=== PATIENT | male | born 1965 | race Caucasian/White ===

== ENCOUNTER 2019-04-18 00:13 | Inpatient (IN) | payer OTHER ==
[~2019-04-18] VITALS: Ht 185.4 cm; Wt 93.9 kg
[2019-04-19 00:26] VITALS: BP 157/91
--- NOTE | 2019-04-19 00:26 | NUR ---
MS RN OPENING NOTES: RECEIVED PT ON ROOM AIR WITH 2 FAMILY MEMBERS AT BEDSIDE. PT IS A DIRECT ADMIT FROM [facility]. NO SOB NOTED. NO S/S OF DISTRESS. PT HAS IV ON R AC #20G AND IS PATENT AND INTACT. CURRENTLY H/L. NO N/V NOTED. BED KEPT IN LOW, LOCKED POSITION, AND SIDE RAILS X 2UP. WILL CONTINUE TO MONITOR PT.
[2019-04-19] MEDS ORDERED: LINE600T2 PO (00:56)
[2019-04-19] MEDS ORDERED: OMEP20TA20 PO (00:56)
[2019-04-19] MEDS ORDERED: GABA-534 PO (00:56)
[2019-04-19] MEDS ORDERED: INSU100I26 SQ (00:56)
[2019-04-19] MEDS ORDERED: ATOR20TA PO (00:56)
[2019-04-19] MEDS ORDERED: DULA0.75 SQ (00:56)
[2019-04-19] MEDS ORDERED: METF-442 PO (00:56)
[2019-04-19] MEDS ORDERED: OMEP40CA37 PO (00:56)
--- NOTE | 2019-04-19 01:19 | NUR ---
MS RN NOTES: SPOKE WITH DR. KNUTSON. INFORMED HIM THAT PT IS HERE AND AWAITING FOR ADMITTING ORDERS. OK TO ORDER PODIATRY CONSULT PT HAS R FOOT CHARCOT AND JUST HAD SX/DEBRIDEMENT LAST MONTH IN [facility].
[2019-04-19] MEDS ORDERED: MAG HYDROX/AL HYDROX/SIMETH 30 ML UDC PO PRN (02:00)
[2019-04-19] MEDS ORDERED: ACETAMINOPHEN 325 MG TABLET PO PRN (02:00)
[2019-04-19] MEDS ORDERED: MAGNESIUM HYDROXIDE 30 ML UDC PO PRN (02:00)
[2019-04-19] MEDS ORDERED: HYDROCODONE/APAP 5/325MG 1 EACH TABLET PO PRN (02:00)
[2019-04-19] MEDS ORDERED: Z GUARD REMEDY 2 OZ OINT TP PRN (02:00)
[2019-04-19] MEDS ORDERED: ZOLPIDEM TARTRATE 5 MG TABLET PO PRN (02:00)
--- NOTE | 2019-04-19 02:00 | NUR ---
RN NOTES: MRSA OF BOTH NARES COLLECTED AND PLACED IN REFRIGERATOR.
[2019-04-19] MEDS: IV 1/2NS 1000 ML 1,000 ML IV PRN ×2 (02:09→18:23)
--- NOTE | 2019-04-19 03:10 | NUR ---
MS RN NOTES: SPOKE WITH DR. KNUTSON. INFORMED HIM THAT PT IS DIABETIC. OK TO GET ACCUCHECKS ACHS WITH MODERATE SLIDING SCALE. ALSO, INFORMED HIM THAT PT MENTIONED THAT HE IS NO LONGER TAKING THE ZYVOX SO NO NEED TO CONTINUE ZYVOX. WILL D/C.
[2019-04-19] MEDS ORDERED: DEXTROSE 50%-WATER 50 ML DISP.SYRIN IV PRN (03:30)
[2019-04-19] MEDS: ONDANSETRON HCL/PF 4 MG/2 ML VIAL IVP PRN (05:11)
--- NOTE | 2019-04-19 05:15 | NUR ---
MS RN NOTES: PT SAID UPON AWAKENING, HE FEELS A LITTLE NAUSEOUS. PT ALSO COMPLAINING OF HEADACHE. PT WAS ADMINISTERED ZOFRAN 4MG IV AND ACETAMINOPHEN 650MG PO. WILL CONTINUE TO MONITOR. Addendum: 04/19/19 at 0525 by MARIETTA TURNER RN ALSO PT CONFIRMED THAT HE IS NOT ALLERGIC TO TYLENOL BEFORE ADMINISTERING MED.
--- NOTE | 2019-04-19 06:14 | NUR ---
MS RN NOTES: BLOOD SUGAR THIS AM WAS 100. NO INSULIN WAS ADMINISTERED. OFFERED PT SNACK BUT PT VERBALIZED HE CAN WAIT UNTIL BREAKFAST. PT GIVEN ORANGE JUICE INSTEAD. WILL CONTINUE TO MONITOR.
[2019-04-19] MEDS: INSULIN REGULAR, HUMAN 100 UNIT/ML 3 ML VIAL SQ PRN (06:29)
[2019-04-19] MEDS: BLOOD SUGAR DIAGNOSTIC 1 EACH STRIP VI SCH ×4 (06:30→21:19)
[2019-04-19 06:55] LABS: BASOPHILS # (AUTO) 0.1 /CMM (0.0-0.2); EOSINOPHILS % (AUTO) 6.2 % (0.0-6.0); HEMATOCRIT 26 % (39-51); HEMOGLOBIN 8.6 g/dL (13.5-17.5); LYMPHOCYTES # (AUTO) 1.3 /CMM (0.8-4.8); LYMPHOCYTES % (AUTO) 20.3 % (20.0-44.0); MEAN CORPUSCULAR HGB CONC 34 g/dl (31.0-36.0); MEAN CORPUSCULAR VOLUME 83 fL (80-96); MONOCYTES # (AUTO) 0.4 /CMM (0.1-1.30); MONOCYTES % (AUTO) 6.4 % (2.0-12.0); NEUTROPHILS # (AUTO) 4.2 /CMM (1.8-8.9); NEUTROPHILS % (AUTO) 66.1 % (43.0-81.0); PLATELET COUNT (AUTO) 285 /CMM (150-450); RED BLOOD CELL COUNT(AUTO) 3.09 MIL/uL (4.5-6.0); WHITE BLOOD COUNT (AUTO) 6.4 K/uL (4.3-11.0)
--- NOTE | 2019-04-19 07:00 | NUR ---
MS RN CLOSING NOTES: ALL NEEDS WERE ATTENDED AND ANTICIPATED FOR. PT ASLEEP AND RESTING COMFORTABLY AT THIS TIME. NO SOB NOTED. NO S/S OF DISTRESS. PT HAS IV ON R AC #20G WITH 2 PORTS AND IS BEING INFUSED WITH IV 1/2 NS AT 75ML/HR. BLOOD SUGAR THIS AM WAS 100. NO INSULIN WAS ADMINISTERED. R FOOT DRESSED WITH KERLIX FOR NOW AND PT FOR PODIATRY CONSULT. BED KEPT IN LOW, LOCKED POSITION, AND SIDE RAILS X 2UP. WILL ENDORSE TO AM NURSE FOR HAYLEY.
[2019-04-19 07:14] LABS: ALBUMIN 2.5 g/dL (3.4-5.0); BILIRUBIN,TOTAL 0.4 mg/dL (0.2-1.0); CALCIUM, SERUM 8.1 mg/dL (8.5-10.1); CREATININE 1.3 mg/dL (0.6-1.3); MAGNESIUM 1.7 mg/dL (1.8-2.4); PHOSPHORUS 3.2 mg/dL (2.5-4.9); POTASSIUM 3.4 mmol/L (3.5-5.1); TOTAL PROTEIN, SERUM 6.4 g/dL (6.4-8.2)
[2019-04-19 08:00] VITALS: BP 142/78
--- NOTE | 2019-04-19 08:00 | NUR ---
m/s transit mixer driver: initial assessment received pt in bed awake, a/ox4. no c/o pain or any discomfort. continue on iv fluids, infusing well. instructed to call for assistance. will continue to monitor.
[2019-04-19] MEDS: ATORVASTATIN 10 MG TABLET PO SCH (08:23)
[2019-04-19] MEDS: METFORMIN 500 MG TABLET PO SCH ×2 (08:23→17:00)
[2019-04-19] MEDS: GABAPENTIN 300 MG CAPSULE PO SCH ×3 (08:23→17:00)
[2019-04-19] MEDS ORDERED: LINEZOLID 600 MG TABLET PO SCH (09:00)
--- NOTE | 2019-04-19 10:45 | NUR ---
m/s emergency room technician: md visit seen and examined by oliva ([email or web address]) at this time and updated plan of care. all questions and concerns answered by oliva.
[2019-04-19] MEDS: Magnesium 1GM/D5W 100ML PREMIX 100 ML IV SCH ×2 (10:46→12:02)
[2019-04-19] MEDS ORDERED: FEE PK DOSING 1 MIN EA MC ONE (11:13)
[2019-04-19] MEDS: ENOXAPARIN SODIUM 40 MG/0.4 ML DISP.SYRIN SQ SCH (11:33)
[2019-04-19] MEDS ORDERED: POTASSIUM CHLORIDE 20 MEQ TAB.PRT.SR PO SCH (12:00)
--- NOTE | 2019-04-19 12:00 | NUR ---
m/s head bellhop captain: nephro consult dr. rivera at bedside at this time with new order. order acknowledged.
[2019-04-19] MEDS: AMLODIPINE BESYLATE 5 MG TABLET PO SCH (13:22)
--- NOTE | 2019-04-19 13:55 | NUR ---
m/s rn telephonic: structural engineering technician consult dr. richards at bedside and removed the dressing on right medial ankle wound and md removed all sutures and tx done at bedside, douglas. well. no c/o pain or any discomfort. instructed to call for assistance.
[2019-04-19] MEDS: VANCOMYCIN 1 GM in IV D5W 250 ML IV SCH (14:05)
[2019-04-19 16:00] VITALS: BP 135/79
--- NOTE | 2019-04-19 16:00 | NUR ---
m/s flower pot press operator: notes visiting at this time. pt resting comfortable in bed without any complaints. instructed to call for assistance.
--- NOTE | 2019-04-19 18:00 | NUR ---
m/s wood preparation supervisor: notes dinner served. hob elevated. no distress noted. needs attended. instructed to call for assistance.
--- NOTE | 2019-04-19 19:00 | NUR ---
m/s milling machinist: notes report given to josy (rn) for continuity of care.
--- NOTE | 2019-04-19 19:03 | NUR ---
MS PACKER OPENING NOTES: RECEIVED PT ON ROOM AIR AND IS TOLERATING WELL .NO SOB NOTED. NO S/S OF DISTRESS. AT BEDSIDE. PT SITTING UP AND USING COMPUTER. PT STATES HE FEELS A LOT BETTER AND NO N/V. PT HAS IV AND IS BEING INFUSED WITH IV 1/2 NS AT 75ML/HR. DRESSING ON R FOOT NOTED AND KEPT CLEAN AND DRY. BED KEPT IN LOW, LOCKED POSITION, AND SIDE RAILS X 2UP. WILL CONTINUE TO MONITOR PT. Addendum: 04/20/19 at 0114 by MARIETTA TURNER RN DRESSING NOTED ON R FOOT/ANKLE AND IS KEPT CLEAN AND DRY.
[2019-04-19 20:27] VITALS: BP 103/68
[2019-04-19] MEDS: *INSULIN REGULAR(HUMULIN R)HUM 100 UNIT/ML VIAL SQ PRN (21:20)
--- NOTE | 2019-04-19 21:20 | NUR ---
MS RN NOTES: BLOOD SUGAR THIS PM WAS 92. NO INSULIN WAS ADMINISTERED. PT WAS GIVEN MILTON CRACKERS AND ORANGE JUICE. WILL CONTINUE TO MONITOR.
[2019-04-20] MEDS: IV 1/2NS 1000 ML 1,000 ML IV PRN ×2 (06:28→21:08)
[2019-04-20] MEDS: BLOOD SUGAR DIAGNOSTIC 1 EACH STRIP VI SCH ×4 (06:39→21:38)
[2019-04-20] MEDS: INSULIN REGULAR, HUMAN 100 UNIT/ML 3 ML VIAL SQ PRN (06:50)
--- NOTE | 2019-04-20 07:27 | NUR ---
MS RN CLOSING NOTES: ALL NEEDS WERE ATTENDED AND ANTICIPATED FOR. PT KEPT CLEAN, DRY, AND COMFORTABLE. PT ASLEEP AT THIS TIME RESTING COMFORTABLY. PT HAS IV BEING INFUSED WITH IV 1/2 NS AT 75ML/HR. R FOOT DRESSING REMAINS IN PLACE AND KEPT CLEAN AND DRY. NO COMPLAINTS OF N/V. NO SOB NOTED. NO S/S OF DISTRESS. BED KEPT IN LOW, LOCKED POSITION, AND SIDE RAILS X 2UP. ENDORSED TO AM NURSE FOR HAYLEY.
--- NOTE | 2019-04-20 07:47 | NUR ---
RN OPENING NOTES PT SLEEPING COMFORTABLY IN BED. NO APPARENT S/S OF PAIN, DISTRESS OR SOB AT THIS TIME. PT HAS RIGHT AC #20 RUNNING 1/2 NS @75ML/HR. SAFETY PRECAUTIONS IN PLACE, BED IN LOWEST LOCKED POSITION, X2 SIDE RAILS UP AND CALL LIGHT WITHIN REACH WILL CONTINUE TO MONITOR.
[2019-04-20 07:50] LABS: BASOPHILS # (AUTO) 0.1 /CMM (0.0-0.2); EOSINOPHILS % (AUTO) 6.6 % (0.0-6.0); HEMATOCRIT 28 % (39-51); HEMOGLOBIN 9.4 g/dL (13.5-17.5); LYMPHOCYTES # (AUTO) 1.2 /CMM (0.8-4.8); LYMPHOCYTES % (AUTO) 20.2 % (20.0-44.0); MEAN CORPUSCULAR HGB CONC 33 g/dl (31.0-36.0); MEAN CORPUSCULAR VOLUME 84 fL (80-96); MONOCYTES # (AUTO) 0.3 /CMM (0.1-1.30); MONOCYTES % (AUTO) 5.4 % (2.0-12.0); NEUTROPHILS # (AUTO) 3.9 /CMM (1.8-8.9); NEUTROPHILS % (AUTO) 66.8 % (43.0-81.0); PLATELET COUNT (AUTO) 301 /CMM (150-450); RED BLOOD CELL COUNT(AUTO) 3.37 MIL/uL (4.5-6.0); WHITE BLOOD COUNT (AUTO) 5.8 K/uL (4.3-11.0)
[2019-04-20 08:00] VITALS: BP 127/85
[2019-04-20 08:01] LABS: ALBUMIN 2.6 g/dL (3.4-5.0); BILIRUBIN,TOTAL 0.3 mg/dL (0.2-1.0); CALCIUM, SERUM 8.7 mg/dL (8.5-10.1); CREATININE 1.4 mg/dL (0.6-1.3); MAGNESIUM 1.9 mg/dL (1.8-2.4); PHOSPHORUS 3.1 mg/dL (2.5-4.9); POTASSIUM 4.2 mmol/L (3.5-5.1); TOTAL PROTEIN, SERUM 6.6 g/dL (6.4-8.2)
[2019-04-20] MEDS: ATORVASTATIN 10 MG TABLET PO SCH (08:25)
[2019-04-20] MEDS: GABAPENTIN 300 MG CAPSULE PO SCH ×3 (08:25→17:26)
[2019-04-20] MEDS: METFORMIN 500 MG TABLET PO SCH ×2 (08:26→17:00)
[2019-04-20] MEDS: AMLODIPINE BESYLATE 5 MG TABLET PO SCH (08:26)
[2019-04-20] MEDS: HYDROGEL DRESSING 90 GM TUBE TP SCH (08:26)
[2019-04-20] MEDS: ENOXAPARIN SODIUM 40 MG/0.4 ML DISP.SYRIN SQ SCH (11:22)
--- NOTE | 2019-04-20 11:22 | NUR ---
WOUND CARE CONSULT: PT FOLLOWED BY DR BEDOYA FOR FOOT WOUND. DEFER TO DP FOR WOUND TREATMENT PLAN. PT STATES THAT HE PREVIOUSLY HAD WOUND ON LEFT BUTTOCK. HEALED AREA NOTED AT THIS TIME. PT ABLE TO OFFLOAD AREA HIMSELF. CURRENT KADE SCORE IS 20. PT IS CONTINENT. WILL SEE PRN. Addendum: 04/20/19 at 1123 by LUIS MANUEL MARY WNDNU Amended: Links added.
[2019-04-20] MEDS: VANCOMYCIN 1 GM in IV D5W 250 ML IV SCH (12:09)
--- NOTE | 2019-04-20 12:53 | NUR ---
RN NOTES PER DR CHÁVEZ, CONTINUE TO HOLD METFORMIN. WILL CONTINUE TO MONITOR.
[2019-04-20 16:00] VITALS: BP 125/81
[2019-04-20] MEDS: ONDANSETRON HCL/PF 4 MG/2 ML VIAL IVP PRN (17:00)
--- NOTE | 2019-04-20 18:02 | NUR ---
rn notes pt had one episode of emesis, zofran given, blood sugar checked. initial blood sugar 66 pt given orange juice blood sugar increased to 89 and patient no longer felt nauseous and emesis ceased.
--- NOTE | 2019-04-20 18:06 | NUR ---
RN CLOSING NOTES PT AWAKE AND RESTING IN BED. NO COMPLAINTS OF PAIN, SOB OR DISTRESS DURING SHIFT. PT HAS RIGHT AC #20 INTACT AND RUNNING 1/2NS@ 75ML/HR. ALL PATIENT NEEDS MET DURING SHIFT. SAFETY PRECAUTIONS IN PLACE, BED IN LOWEST LOCKED POSITION, X2 SIDE RAILS UP AND CALL LIGHT WITHIN REACH. WILL CONTINUE TO MONITOR.
[2019-04-20 20:00] VITALS: BP 108/67
--- NOTE | 2019-04-20 20:00 | NUR ---
MS DIRECTOR PHYSICAL THERAPY INITIAL NOTES SEEN PT IN BED AWAKE AND ALERT SITTING WHILE WATCHING MOVIE ON HIS LAPTOP. PT DENIES ANY PAIN OR ANY DISCOMFORT. PT REQUESTED TO HAVE HIS BLOOD SUGAR CHECK BY 9PM AND HAVE SNACK THAT HE REQUESTED FROM DIETARY EARLIER. IVF 1/2 NS AT 75ML/HR INFUSING ON HIS RAC GAUGE 20 PATENT AND INTACT.KEPT HIM COMFORTABLE AT ALL TIMES. PLACE CALL LIGHT AT REACH. WILL [id number] MONITORING.
[2019-04-20] MEDS: *INSULIN REGULAR(HUMULIN R)HUM 100 UNIT/ML VIAL SQ PRN (21:38)
--- NOTE | 2019-04-20 21:39 | NUR ---
ms heating unit installer notes blood sugar 117 , no insulin due at this time. no signs of hypo glycemia noted. requested snacks served . IVF still infusing. will continue monitoring. place call light at reach.
--- NOTE | 2019-04-21 00:21 | NUR ---
MS KYLIE NOTES PT SLEEPING COMFORTABLY IN BED WITHOUT ANY ACUTE DISTRESS NOTED. IVF STILL INFUSING. KEPT HIM WARM AND COMFORTABLE AT ALL TIMES. PLACE CALL LIGHT AT REACH. WILL CONTINUE MONITORING.
--- NOTE | 2019-04-21 03:00 | NUR ---
MS CREDIT PRODUCTS OFFICER NOTES PT REMAINS ASLEEP.
[2019-04-21] MEDS: BLOOD SUGAR DIAGNOSTIC 1 EACH STRIP VI SCH ×3 (06:22→17:04)
[2019-04-21] MEDS: INSULIN REGULAR, HUMAN 100 UNIT/ML 3 ML VIAL SQ PRN (06:29)
[2019-04-21 06:37] LABS: CALCIUM, SERUM 8.8 mg/dL (8.5-10.1); CREATININE 1.3 mg/dL (0.6-1.3); POTASSIUM 3.9 mmol/L (3.5-5.1)
--- NOTE | 2019-04-21 07:16 | NUR ---
MS BANK NOTE DESIGNER CLOSING NOTES PT RESTING BUT AROUSE TO HIS NAME. DENIES ANY DISCOMFORT. SLEPT WELL AND STABLE RAMIREZ THE NIGHT. IVF STILL INFUSING ON HIS RIGHT AC NS AT 75ML/HR . KEPT HIM WARM AND COMFORTABLE AT ALL TIMES. PLACE CALL LIGHT AT REACH. ENDORSE TO AM NURSE FOR CONTINUITY OF CARE.
--- NOTE | 2019-04-21 07:29 | NUR ---
M/S RN OPENING NOTES RECEIVED PATIENT ON BED ASLEEP BUT EASILY AROUSABLE, A/O X 4, RESPONSIVE TO ALL STIMULI, ABLE TO MAKE NEEDS KNOWN. RESPIRATION EVEN AND NON LABORED WITH NO PRESENCE OF ACUTE RESPIRATORY DISTRESS. ABDOMEN SOFT AND NON DISTENDED WITH ACTIVE BOWEL SOUNDS. SKIN WARM TO TOUCH AND DRY. DENIES PAIN AND DISCOMFORT. IV SITE AT RIGHT AC WITH NO S/SX ON INFILTRATION, PATENT IN FLUSHING. ALL CONCERNS ADDRESSED. PLACED CALL LIGHT WITHIN REACH FOR SAFETY. WILL CONTINUE TO MONITOR CARE.
[2019-04-21 08:00] VITALS: BP 135/88
[2019-04-21] MEDS: ATORVASTATIN 10 MG TABLET PO SCH (08:24)
[2019-04-21] MEDS: AMLODIPINE BESYLATE 5 MG TABLET PO SCH (08:25)
[2019-04-21] MEDS: METFORMIN 500 MG TABLET PO SCH ×2 (08:25→16:39)
[2019-04-21] MEDS: HYDROGEL DRESSING 90 GM TUBE TP SCH (08:25)
[2019-04-21] MEDS: GABAPENTIN 300 MG CAPSULE PO SCH ×3 (08:25→16:39)
[2019-04-21] MEDS ORDERED: VANC1PLA9 IV (10:02)
[2019-04-21] MEDS: IV 1/2NS 1000 ML 1,000 ML IV PRN (10:45)
[2019-04-21] MEDS: ENOXAPARIN SODIUM 40 MG/0.4 ML DISP.SYRIN SQ SCH (10:46)
--- NOTE | 2019-04-21 11:18 | NUR ---
M/S RN NOTES NOTIFIED PATIENT ABOUT METFORMIN WITH NOTES OF MD IF HOLD OR CONTINUE. PER DR. LLOYD, OKAY TO GIVE AND NOT TO GIVE MEDICATION. RISK OF BUYERS' AGENT METFORMIN DISCUSSED WITH PATIENT. WILL WAIT FOR ADÁN COMPRESSOR STATION ENGINEER FOR MEDICATION
[2019-04-21] MEDS: VANCOMYCIN 1 GM in IV D5W 250 ML IV SCH (12:24)
[2019-04-21 15:30] VITALS: BP 125/74
--- NOTE | 2019-04-21 15:32 | NUR ---
M/S RN NOTES PER RULA (CHARGE NURSE), METFORMIN DOSAGE WAS MODIFIED BY ADÁN CLEANING MANAGER FOR DISCHARGE. FINALIZED IN EXT CARE AND WILL GIVE TO PATIENT. OKAY TO CONTINUE METFORMIN AT HOME ORDERED
--- NOTE | 2019-04-21 17:08 | NUR ---
M/S PIGS FEET FINISHER NOTES PATIENT DISCHARGED TO HOME WHEELED BY CHARLIE (HEALTHCARE NETWORK CONSULTANT) ACCOMPANIED BY JUDY (). A/O X 4 AND ABLE TO MADE NEEDS KNOWN. NO PRESENCE OF ACUTE RESPIRATORY DISTRESS, TOLERATED ROOM AIR. ABD SOFT AND NON DISTENDED WITH ACTIVE BOWEL SOUNDS. SKIN WITH REDNESS IN SACRAL AREA, LEFT LOWER LEG AND LEFT FOOT REDNESS WITH SLIGHT RASHES AND RIGHT MEDIAL FOOT WOUND, TREATMENT PROVIDED ORDERED. PICC LINE CONSENTED AND PLACED AT RIGHT UPPER AM DUE TO CONTINUATION OF VANCOMYCIN FOR 21 DAYS, FOLLOWED BY [facility]. EXIT CARE PROVIDED WITH ALL CONCERNS ATTENDED. DISCHARGED PATIENT IN SAFE AND STABLE CONDITION.
== END 2019-04-21 17:00 | disposition home health service (06) | DRG 640 ==
LOC: MED 04-19 00:21
PROVIDERS: ADMIT Nurse Practitioner Acute Care; ATTEND Nurse Practitioner Acute Care
DX: E86.0 Dehydration (principal); N17.0 Acute kidney failure with tubular necrosis; M86.8X7 Other osteomyelitis, ankle and foot; L97.518 Non-pressure chronic ulcer of other part of right foot with other specified severity; I10 Essential (primary) hypertension; E83.42 Hypomagnesemia; E11.42 Type 2 diabetes mellitus with diabetic polyneuropathy; E11.621 Type 2 diabetes mellitus with foot ulcer; D63.8 Anemia in other chronic diseases classified elsewhere; E11.610 Type 2 diabetes mellitus with diabetic neuropathic arthropathy; E11.21 Type 2 diabetes mellitus with diabetic nephropathy; E66.01 Morbid (severe) obesity due to excess calories; E11.69 Type 2 diabetes mellitus with other specified complication; Z79.84 Long term (current) use of oral hypoglycemic drugs; R11.2 Nausea with vomiting, unspecified; T36.8X5A Adverse effect of other systemic antibiotics, initial encounter; Y92.009 Unspecified place in unspecified non-institutional (private) residence as the place of occurrence of the external cause
CPT/HCPCS: 36415; 80048-TC; 80053-TC; 80061-TC; 80202-TC; 82962-TC; 83735-TC; 84100-TC; 85025-TC; 87081-TC; A6248; A6402; A6403; G0378; J1650; J1815; J2405; J3370; J3475; J3490; J7060

== ENCOUNTER 2019-04-24 15:05 | Emergency (ER) | payer OTHER ==
[~2019-04-24] VITALS: Ht 185.4 cm; Wt 93.0 kg
[~2019-04-24 15:05] MED LIST: ATOR20TA PO; DULA0.75 SQ; GABA-534 PO; INSU100I26 SQ; METF-442 PO; OMEP20TA20 PO; OMEP40CA37 PO; VANC1PLA9 IV
--- NOTE | 2019-04-24 15:07 | NUR ---
PT BIB TO ED BED 02 C/O DIFFUSE ABDOMINAL PAIN W/ N.V FOR THE PAST 3 DAYS. WAS RECENTLY DISCHARGE HOME AND STILL ON IV ANTIBIOTICS FOR OSTEOMYELITIS. PLACED ON MONITOR. AWAITING MD MEJIAS.
[2019-04-24] MEDS ORDERED: FEE PK DOSING 1 MIN EA MC ONE (15:08)
--- NOTE | 2019-04-24 15:50 | NUR ---
DR ANDREA AT BEDSIDE FOR EVAL.
[2019-04-24] MEDS ORDERED: METOCLOPRAMIDE HCL 10 MG/2 ML VIAL IV ONE (16:00)
[2019-04-24] MEDS ORDERED: IV NS 0.9% 1,000 ML BAG IV ONE (16:00)
--- NOTE | 2019-04-24 16:00 | NUR ---
INSPECTOR PAWNSHOP DETAIL AT BEDSIDE FOR BLOOD DRAW.
[2019-04-24] MEDS ORDERED: METOCLOPRAMIDE HCL 10 MG/2 ML VIAL ONE (16:02)
[2019-04-24 16:05] LABS: BASOPHILS # (AUTO) 0.1 /CMM (0.0-0.2); BASOPHILS % (AUTO) 0.7 % (0.0-2.0); EOSINOPHILS % (AUTO) 0.5 % (0.0-6.0); HEMATOCRIT 31 % (39-51); HEMOGLOBIN 10.6 g/dL (13.5-17.5); LYMPHOCYTES # (AUTO) 0.9 /CMM (0.8-4.8); LYMPHOCYTES % (AUTO) 9.8 % (20.0-44.0); MEAN CORPUSCULAR HGB CONC 34 g/dl (31.0-36.0); MEAN CORPUSCULAR VOLUME 83 fL (80-96); MONOCYTES # (AUTO) 0.2 /CMM (0.1-1.30); MONOCYTES % (AUTO) 2.5 % (2.0-12.0); NEUTROPHILS # (AUTO) 8.2 /CMM (1.8-8.9); NEUTROPHILS % (AUTO) 86.5 % (43.0-81.0); PLATELET COUNT (AUTO) 269 /CMM (150-450); RED BLOOD CELL COUNT(AUTO) 3.73 MIL/uL (4.5-6.0); WHITE BLOOD COUNT (AUTO) 9.5 K/uL (4.3-11.0)
[2019-04-24] MEDS ORDERED: MORPHINE SULFATE INJ 4 MG/ML DISP.SYRIN ONE (16:12)
[2019-04-24] MEDS ORDERED: diphenhydrAMINE HCL 50 MG/ML VIAL ONE (16:12)
[2019-04-24 16:22] LABS: CALCIUM, SERUM 9.2 mg/dL (8.5-10.1); CARBON DIOXIDE 24 mmol/L (21-32); CHLORIDE 97 mmol/L (98-107); CREATININE 1.5 mg/dL (0.6-1.3); GLUCOSE 231 mg/dL (74-106); POTASSIUM 3.4 mmol/L (3.5-5.1); SODIUM SERUM 135 mmol/L (136-145); UREA NITROGEN, BLOOD 21 mg/dL (7-18)
[2019-04-24 16:27] LABS: ALANINE AMINOTRANSFERASE 19 U/L (12-78); ALBUMIN 3.3 g/dL (3.4-5.0); ALKALINE PHOSPHATASE 89 U/L (46-116); ASPARTATE AMINOTRANSFERASE 14 U/L (15-37); BILIRUBIN,DIRECT 0.2 mg/dL (0.0-0.2); BILIRUBIN,TOTAL 0.7 mg/dL (0.2-1.0); TOTAL PROTEIN, SERUM 8.1 g/dL (6.4-8.2)
[2019-04-24] MEDS ORDERED: diphenhydrAMINE HCL 50 MG/ML VIAL IV ONE (16:30)
[2019-04-24] MEDS ORDERED: MORPHINE SULFATE INJ 2 MG/ML DISP.SYRIN IV ONE (16:30)
[2019-04-24] MEDS ORDERED: IV 1/2NS 1000 ML 1,000 ML IV PRN (17:51)
[2019-04-24] MEDS ORDERED: VANC500V IV (17:54)
[2019-04-24] MEDS ORDERED: ONDANSETRON HCL/PF - ER 4 MG/2 ML VIAL IV ONE (18:00)
[2019-04-24] MEDS ORDERED: MAG HYDROX/AL HYDROX/SIMETH 30 ML UDC PO PRN (18:00)
[2019-04-24] MEDS ORDERED: HYDROCODONE/APAP 5/325MG 1 EACH TABLET PO PRN (18:00)
[2019-04-24] MEDS ORDERED: MAGNESIUM HYDROXIDE 30 ML UDC PO PRN (18:00)
[2019-04-24] MEDS ORDERED: ONDANSETRON HCL/PF 4 MG/2 ML VIAL IVP PRN (18:00)
[2019-04-24] MEDS ORDERED: Z GUARD REMEDY 2 OZ OINT TP PRN (18:00)
[2019-04-24] MEDS ORDERED: METOCLOPRAMIDE HCL 15 MG in IV NS 0.9% 50 ML IV PRN (18:00)
[2019-04-24] MEDS ORDERED: ZOLPIDEM TARTRATE 5 MG TABLET PO PRN (18:00)
[2019-04-24] MEDS ORDERED: ACETAMINOPHEN 325 MG TABLET PO PRN (18:00)
[2019-04-24] MEDS ORDERED: ONDANSETRON HCL/PF 4 MG/2 ML VIAL ONE (18:05)
--- NOTE | 2019-04-24 19:13 | NUR ---
REPORT GIVEN TO LORENE LIMA RN FOR HAYLEY.
--- NOTE | 2019-04-24 19:33 | NUR ---
LICENSED SALES ASSISTANT LENCHO INFORMED US TO HAVE US CALL DR ARTEAGA AT [phone]. LENCHO NUMBER IS [phone]
--- NOTE | 2019-04-24 19:40 | NUR ---
CALLED DR ARTEAGA FOR A DR TO LEFT MESSAGE WITH AUTO TRANSMISSION SPECIALIST. WILL CALL BACK
--- NOTE | 2019-04-24 20:07 | NUR ---
Patient discharged to home in stable condition. Written and verbal after care instructions given. Patient verbalizes understanding of instruction. Pt ambulatory with a steady gait
[2019-04-24 20:08] VITALS: BP 122/77
[2019-04-25] MEDS ORDERED: PANTOPRAZOLE 40 MG TABLET.DR PO SCH (07:30)
== END 2019-04-24 20:09 | disposition home or self-care (01) ==
LOC: ER 15:07
DX: R11.2 Nausea with vomiting, unspecified (principal); M86.9 Osteomyelitis, unspecified; I10 Essential (primary) hypertension; E11.9 Type 2 diabetes mellitus without complications; Z98.890 Other specified postprocedural states; Z88.6 Allergy status to analgesic agent; Z60.2 Problems related to living alone; Z79.4 Long term (current) use of insulin; Z79.84 Long term (current) use of oral hypoglycemic drugs; Z79.899 Other long term (current) drug therapy
CPT/HCPCS: 36415; 80048; 80076; 80202; 83605 ×2; 84484; 85025; 85730; 87040 ×2; 93005; 96361; 96374; 96375; 99284; A4216 ×2; J1200; J2270; J2405; J2765 ×2; J7030